=== PATIENT | female | born 1960 | race American Indian/Alaskan Native ===

== ENCOUNTER 2016-06-25 15:57 | Outpatient (CLI) | payer OTHER ==
--- NOTE | 2016-06-26 09:04 | XRay Report ---
AP and lateral cervical spine: Cervical pain. The frontal projection of C1-2 is not optimal but there is no evidence of a fracture or displacement. It is well-visualized in the lateral view and appears normal. With this exception the findings are well-visualized and all appear unremarkable and unchanged from prior examination in 2013. The vertebral height, alignment, and interspaces are preserved. Impression: Normal study. RIGHT SHOULDER: Routine views demonstrate normal bony and soft tissue structures with normal joint alignment of the shoulder. No significant change compared to a prior examination in 2013. IMPRESSION: Normal study.
== END 2016-06-25 15:58 | disposition home or self-care (01) ==
LOC: SPVIMAG 15:57
DX: M54.2 Cervicalgia (principal); M25.511 Pain in right shoulder
CPT/HCPCS: 72040